=== PATIENT | male | born 1960 | race Caucasian/White ===

== ENCOUNTER 2017-08-18 09:22 | Outpatient (CLI) | payer OTHER ==
[~2017-08-18 09:22] MED LIST: TOPROL XL50 MG
== END 2017-08-18 09:46 | disposition home or self-care (01) ==
LOC: NUCLEAR 09:22
DX: R00.2 Palpitations (principal)

== ENCOUNTER 2017-09-01 10:22 | Outpatient (CLI) | payer OTHER | END 2017-09-01 10:25 | disposition home or self-care (01) | LOC: SONOGRAMA 10:22 → MAMO-SONO 13:15 | DX: I10 Essential (primary) hypertension (principal) ==

== ENCOUNTER 2019-04-06 10:59 | Outpatient (CLI) | payer OTHER | END 2019-04-06 11:05 | disposition home or self-care (01) | LOC: SONOGRAMA 10:59 → MAMO-SONO 11:15 | DX: S46.101A Unspecified injury of muscle, fascia and tendon of long head of biceps, right arm, initial encounter (principal) ==

== ENCOUNTER 2020-01-04 14:21 | Outpatient (CLI) | payer OTHER | END 2020-01-04 14:30 | disposition home or self-care (01) | LOC: RAD 14:21 | PROVIDERS: ATTEND Orthopaedic Surgery | DX: M25.572 Pain in left ankle and joints of left foot (principal) ==

== ENCOUNTER 2020-01-16 08:54 | Outpatient (CLI) | payer OTHER ==
[2020-01-16] MEDS ORDERED: LIPO-FLAVONOID1 EACH PO (11:09)
[2020-01-16] MEDS ORDERED: FLONASE16 GM NASAL (11:10)
== END 2020-01-16 12:38 | disposition home or self-care (01) ==
LOC: OFIC 805 08:54
PROVIDERS: ATTEND Otolaryngology
DX: H69.83 Other specified disorders of Eustachian tube, bilateral (principal); H74.8X3 Other specified disorders of middle ear and mastoid, bilateral; R49.0 Dysphonia; H61.23 Impacted cerumen, bilateral

== ENCOUNTER → 2020-02-16 | Outpatient (CLI) | payer OTHER ==
[~2020-02-16] MED LIST changes: +FLONASE16 GM NASAL; +LIPO-FLAVONOID1 EACH PO; +NASONEX17 GM NASAL
== END | disposition home or self-care (01) ==
LOC: OFIC 805 09:01
PROVIDERS: ATTEND Otolaryngology
DX: J30.89 Other allergic rhinitis (principal); H69.83 Other specified disorders of Eustachian tube, bilateral; H74.8X3 Other specified disorders of middle ear and mastoid, bilateral; H81.13 Benign paroxysmal vertigo, bilateral

== ENCOUNTER → 2020-03-22 | Outpatient (CLI) | payer OTHER | END | disposition home or self-care (01) | LOC: OFIC 805 11:15 | PROVIDERS: ATTEND Otolaryngology | DX: H81.13 Benign paroxysmal vertigo, bilateral (principal); J30.89 Other allergic rhinitis; H69.93 Unspecified Eustachian tube disorder, bilateral ==

== ENCOUNTER → 2020-04-19 | Outpatient (CLI) | payer OTHER | END | disposition home or self-care (01) | LOC: OFIC 805 12:15 | PROVIDERS: ATTEND Otolaryngology | DX: J30.89 Other allergic rhinitis (principal); H69.83 Other specified disorders of Eustachian tube, bilateral; H61.23 Impacted cerumen, bilateral; H74.8X3 Other specified disorders of middle ear and mastoid, bilateral ==

== ENCOUNTER 2020-06-26 12:45 | Outpatient (CLI) | payer OTHER | END 2020-06-26 14:20 | disposition home or self-care (01) | LOC: OFIC 805 12:45 | PROVIDERS: ATTEND Otolaryngology | DX: L29.8 Other pruritus (principal); J30.89 Other allergic rhinitis; H61.23 Impacted cerumen, bilateral ==

== ENCOUNTER 2020-12-06 12:03 | Outpatient (CLI) | payer OTHER | END 2020-12-06 12:21 | disposition home or self-care (01) | LOC: RAD 12:03 | PROVIDERS: ATTEND Internal Medicine Cardiovascular Disease | DX: I10 Essential (primary) hypertension (principal) ==

== ENCOUNTER 2021-01-21 16:02 | Emergency (ER) | payer OTHER ==
[~2021-01-21] VITALS: Ht 177.8 cm; Wt 54.4 kg
[2021-01-21] MEDS ORDERED: AZOR 5-20 MG T1 EACH (16:13)
[2021-01-21] MEDS ORDERED: ZYRTEC10 MG (16:13)
[2021-01-21] MEDS ORDERED: CARAFATE1 GM PO (20:22)
== END 2021-01-21 20:31 | disposition home or self-care (01) ==
LOC: ER 16:02
DX: K29.70 Gastritis, unspecified, without bleeding (principal); K80.20 Calculus of gallbladder without cholecystitis without obstruction; R10.13 Epigastric pain

== ENCOUNTER → 2021-03-14 11:05 | Outpatient (CLI) | payer OTHER ==
[~2021-03-14 11:05] MED LIST changes: +AZOR 5-20 MG T1 EACH; +CARAFATE1 GM PO; +ZYRTEC10 MG
== END | disposition home or self-care (01) ==
LOC: NUCLEAR 11:00
PROVIDERS: ATTEND Internal Medicine Cardiovascular Disease
DX: I42.9 Cardiomyopathy, unspecified (principal)

== ENCOUNTER → 2021-04-19 11:44 | Outpatient (CLI) | payer OTHER | END | disposition home or self-care (01) | LOC: TOM 11:44 | PROVIDERS: ATTEND Internal Medicine Pulmonary Disease | DX: Q33.0 Congenital cystic lung (principal); J43.2 Centrilobular emphysema; R06.02 Shortness of breath ==

== ENCOUNTER → 2021-12-24 | Outpatient (CLI) | payer OTHER | END | disposition home or self-care (01) | LOC: SONOGRAMA 10:27 | PROVIDERS: ATTEND Internal Medicine Hepatology | DX: R10.32 Left lower quadrant pain (principal) ==

== ENCOUNTER 2024-09-21 11:23 | Outpatient (CLI) | payer OTHER | END 2024-09-21 11:26 | disposition home or self-care (01) | LOC: RAD 11:23 | PROVIDERS: ATTEND Orthopaedic Surgery | DX: M25.562 Pain in left knee (principal) ==

== ENCOUNTER 2024-09-26 12:38 | Outpatient (CLI) | payer OTHER | END 2024-09-26 12:46 | disposition home or self-care (01) | LOC: MRI 12:38 | PROVIDERS: ATTEND Orthopaedic Surgery | DX: M25.462 Effusion, left knee (principal); M17.12 Unilateral primary osteoarthritis, left knee | CPT/HCPCS: 73721 ==

== ENCOUNTER 2024-10-04 10:10 | Outpatient (CLI) | payer OTHER | END 2024-10-04 10:19 | disposition home or self-care (01) | LOC: SONOGRAMA 10:10 | PROVIDERS: ATTEND Internal Medicine Cardiovascular Disease | DX: K59.00 Constipation, unspecified (principal) ==

== ENCOUNTER 2025-06-08 10:13 | Outpatient (CLI) | payer OTHER | END 2025-06-08 10:15 | disposition home or self-care (01) | LOC: MRI 10:13 | PROVIDERS: ATTEND Otolaryngology | DX: H53.2 Diplopia (principal); H93.19 Tinnitus, unspecified ear | CPT/HCPCS: 70553 ==

== ENCOUNTER 2025-06-30 09:42 | Outpatient (CLI) | payer OTHER | END 2025-06-30 09:57 | disposition home or self-care (01) | LOC: TOM 09:42 | PROVIDERS: ATTEND Ophthalmology | DX: H53.2 Diplopia (principal) ==